=== PATIENT | male | born 2000 | race Caucasian/White ===

== ENCOUNTER 2022-11-29 17:43 | Emergency (ER) | payer OTHER ==
[~2022-11-29] VITALS: Ht 167.6 cm; Wt 81.6 kg
--- NOTE | 2022-11-29 17:48 | NUR ---
KYLE FROM HOME WAS TAKING DRUGS EARLIER AND MOM FOUND HIM ALTERED AND CALLED 911. WINESSED SEIZURE ON SCENE. VERSED 5MG AND 4MG ZOFRAN GIVEN IV. PT STATED THAT HE HAS NOT BEEN COMPLIANT WITH HIS SEIZURE MEDICATION BECAUSE HE HAS BEEN FORGETTING. NO ORAL TRAUMA NOTED. ATTACHED TO MONITOR, VITALS WITHIN NORMAL LIMITS. AWAITING MD ORDER.
[2022-11-29] MEDS ORDERED: LEVETIRACETAM (250 MG) 250 MG TABLET PO ONE ×2 (18:09→18:30)
[2022-11-29] MEDS ORDERED: MAG HYDROX/AL HYDROX/SIMETH 30 ML UDC ONE (19:51)
--- NOTE | 2022-11-29 19:58 | NUR ---
Patient discharged to home in stable condition. Written and verbal after care instructions given. Patient verbalizes understanding of instruction. IV removed. Catheter intact and site benign. Pressure and 4x4 applied to site. No bleeding noted.
[2022-11-29] MEDS ORDERED: MAG HYDROX/AL HYDROX/SIMETH 30 ML UDC PO ONE (20:00)
[2022-11-29 20:12] VITALS: BP 115/68
== END 2022-11-29 20:12 | disposition home or self-care (01) ==
LOC: ER 17:45
DX: G40.909 Epilepsy, unspecified, not intractable, without status epilepticus (principal)
CPT/HCPCS: 82962-TC

== ENCOUNTER 2022-11-30 04:10 | Emergency (ER) | payer OTHER ==
[~2022-11-30] VITALS: Ht 170.2 cm; Wt 86.2 kg
--- NOTE | 2022-11-30 04:20 | NUR ---
[id number] FROM HOME C/O HALLUCINATIONS DID NOT SPECIFY. SMOKED FENTANYL 24HRS AGO. +N/V. PATIENT IS AAOX4. ABLE TO MAKE NEEDS KNOWN. NAUSEATED. PLACED COMFORTABLY IN BED. VITALS CHECKED.
--- NOTE | 2022-11-30 04:20 | NUR ---
[id number] FROM HOME C/O HALLUCINATIONS DID NOT SPECIFY. SMOKED FENTANYL 24 HRS AGO. +N/V. TOLERATING R/A WELL WITH NO RESP DISTRESS. SAFETY MEASURES IN PLACE.
--- NOTE | 2022-11-30 04:41 | NUR ---
[employer]IR[employer]FT ARMORER AT BEDSIDE
--- NOTE | 2022-11-30 04:41 | NUR ---
URINE SPECIMEN SENT TO LAB
--- NOTE | 2022-11-30 04:41 | NUR ---
COVID SWAB DONE AND SENT TO LAB
[2022-11-30] MEDS ORDERED: LORAZEPAM INJ 2 MG/ML VIAL ONE (04:58)
[2022-11-30] MEDS ORDERED: LORAZEPAM INJ 2 MG/ML VIAL IM ONE (05:00)
[2022-11-30 05:03] LABS: BILIRUBIN,URINE NEGATIVE (NEGATIVE); COLOR,URINE YELLOW (YELLOW); LEUKOCYTE ESTERASE ,URINE NEGATIVE (NEGATIVE); NITRITE, URINE NEGATIVE (NEGATIVE); PH,URINE 8.5 (5.0-8.0); PROTEIN,URINE 1+ mg/dl (NEGATIVE); RBC,URINE 0-2 /HPF (0-2); UGLUCOSE NEGATIVE (NEGATIVE); UROBILINOGEN,URINE 0.2 EU/dL (0.2)
[2022-11-30 05:04] LABS: BACTERIA,URINE Rare /HPF (None Seen); SQUAMOUS EPITHELIAL CELL,UR Few /HPF (None Seen); WBC,URINE 0-2 /HPF (0-3)
[2022-11-30 05:11] LABS: CALCIUM, SERUM 9.5 mg/dL (8.5-10.1); CARBON DIOXIDE 28 mmol/L (21-32); CHLORIDE 101 mmol/L (98-107); CREATININE 1.2 mg/dL (0.6-1.3); GLUCOSE 146 mg/dL (74-106); POTASSIUM 3.5 mmol/L (3.5-5.1); SODIUM SERUM 138 mmol/L (136-145); UREA NITROGEN, BLOOD 12 mg/dL (7-18)
[2022-11-30] MEDS ORDERED: ONDANSETRON HCL/PF 4 MG/2 ML VIAL ONE (05:15)
[2022-11-30 05:19] LABS: ALANINE AMINOTRANSFERASE 21 U/L (12-78); ALCOHOL, BLOOD < 3 mg/dL (0-0); ALKALINE PHOSPHATASE 109 U/L (46-116); ASPARTATE AMINOTRANSFERASE 17 U/L (15-37); BILIRUBIN,DIRECT 0.2 mg/dL (0.0-0.2); BILIRUBIN,TOTAL 0.5 mg/dL (0.2-1.0); TOTAL PROTEIN, SERUM 7.6 g/dL (6.4-8.2)
[2022-11-30 05:23] LABS: ACETAMINOPHEN 0 ug/ml (10-30)
[2022-11-30] MEDS ORDERED: ONDANSETRON HCL/PF 4 MG/2 ML VIAL IM ONE (05:30)
[2022-11-30 05:49] LABS: BASOPHILS % (AUTO) 0.1 % (0.0-2.0); HEMATOCRIT 45 % (39-51); LYMPHOCYTES # (AUTO) 0.7 K/uL (0.8-4.8); LYMPHOCYTES % (AUTO) 9.4 % (20.0-44.0); MEAN CORPUSCULAR HGB CONC 33 g/dl (31.0-36.0); MEAN CORPUSCULAR VOLUME 77 fL (80-96); MONOCYTES # (AUTO) 0.5 K/uL (0.1-1.30); MONOCYTES % (AUTO) 5.9 % (2.0-12.0); NEUTROPHILS # (AUTO) 6.6 K/uL (1.8-8.9); NEUTROPHILS % (AUTO) 84.6 % (43.0-81.0); PLATELET COUNT (AUTO) 302 K/uL (150-450); RED BLOOD CELL COUNT(AUTO) 5.88 MIL/uL (4.5-6.0); WHITE BLOOD COUNT (AUTO) 7.8 K/uL (4.3-11.0)
[2022-11-30] MEDS ORDERED: BUPRENORPHINE HCL 8 MG TAB.SUBL SL ONE ×4 (06:30→07:39)
[2022-11-30 06:56] VITALS: BP 143/86
[2022-11-30] MEDS ORDERED: LORAZEPAM 1 MG TABLET PO ONE (07:30)
[2022-11-30] MEDS ORDERED: LORAZEPAM 1 MG TABLET ONE (07:39)
--- NOTE | 2022-11-30 07:47 | NUR ---
PT RESTING IN BED ABLE TO BE AWAKENED. ATIVAN PO GIVEN INDICATED, NIL[place] WELL. PT REFUSED BUPRENORPHINE AT THIS TIME BECAUSE HE DIDN'T FEEL WELL LAST TIME HE TOOK IT AND WANTS TO TAKE IT LATER INSTEAD.
--- NOTE | 2022-11-30 08:00 | NUR ---
pt not on hold; denies si/hi at this time
--- NOTE | 2022-11-30 08:45 | NUR ---
PT ABLE TO DRINK APPLE JUICE AT BEDSIDE
--- NOTE | 2022-11-30 09:59 | NUR ---
Cindy eastman in ED - 11/30/22 at 1005 by ADAN Patient eloped from [facility]. [facility] notified.
--- NOTE | 2022-11-30 10:04 | NUR ---
Patient eloped from facility. Dr. Gonzalez notified.
--- NOTE | 2022-11-30 10:08 | NUR ---
SS consult requested for drug use. However Pt. has eloped.
== END 2022-11-30 10:16 | disposition left against medical advice (07) ==
LOC: ER 04:28
DX: R44.3 Hallucinations, unspecified (principal); F11.23 Opioid dependence with withdrawal
CPT/HCPCS: 99284; 96372 ×2; 85025; 80048; 80076; 81001; 36415; 87426; 80143; 80320; 80307; J2060; J2405; C9803; G0480